=== PATIENT | male | born 1970 | race African-American/Black ===

== ENCOUNTER 2022-01-04 04:01 | Emergency (ER) | payer MEDICAID, OTHER ==
[~2022-01-04] VITALS: Ht 182.9 cm; Wt 113.0 kg
[2022-01-04] MEDS ORDERED: ONDANSETRON HCL 4MG/2ML INJ IV STA (05:23)
[2022-01-04] MEDS ORDERED: SODIUM CHLORIDE 0.9% 1,000 ML IV ONE (05:30)
[2022-01-04] MEDS ORDERED: FAMOTIDINE 20MG/2ML VIAL IV ONE (05:45)
[2022-01-04 05:59] LABS: HEMATOCRIT. 37.8 % (42.0-52.0); HEMOGLOBIN. 12.3 g/dL (14.0-18.0); MEAN CORPUSCULAR VOLUME 91.9 fL (80.0-94.0); MEAN PLATELET VOLUME 6.7 fl (7.4-10.4); PLATELET 352 x1000/uL (130-400); RED BLOOD CELL COUNT 4.11 mill/uL (4.7-6.1); RED CELL DISTRIBUTION WIDTH 16.2 % (11.6-14.6)
[2022-01-04 06:03] LABS: CHLORIDE 102 mEq/L (98-107)
[2022-01-04 06:12] LABS: ETHANOL BLOOD < 10 mg/dL
[2022-01-04 06:13] LABS: CLARITY URINE CLEAR (CLEAR); COLOR URINE YELLOW (YELLOW); KETONES URINE NEGATIVE (NEGATIVE); LEUKOCYTE ESTERASE URINE NEGATIVE (NEGATIVE); NITRITE URINE NEGATIVE (NEGATIVE); OCCULT BLOOD URINE NEGATIVE (NEGATIVE); PH URINE 7.5 (4.5-8.0); PROTEIN URINE NEGATIVE (NEGATIVE); SPECIFIC GRAVITY URINE 1.015 (1.005-1.030); UROBILINOGEN URINE 0.2 E.U./dL (0.2-1.0)
[2022-01-04 06:45] LABS: *AMPHETAMINES SCREEN URINE NEGATIVE (NEGATIVE); *BARBITURATES SCREEN URINE NEGATIVE (NEGATIVE); *BENZODIAZEPINES SCREEN URINE NEGATIVE (NEGATIVE); *COCAINE SCREEN URINE NEGATIVE (NEGATIVE); CANNABINOID URINE SCREEN NEGATIVE (NEGATIVE); METHADONE URINE SCREEN NEGATIVE (NEGATIVE); OPIATES URINE SCREEN NEGATIVE (NEGATIVE); PHENCYCLIDINE URINE SCREEN PRESUMTIVE POSITIVE (NEGATIVE)
[2022-01-04] MEDS ORDERED: IMOD MT (07:23)
[2022-01-04] MEDS ORDERED: ONDA4TAB11 PO (07:23)
[2022-01-04 08:00] VITALS: BP 161/101
[2022-01-04 10:29] LABS: PLATELET ESTIMATE NORMAL
== END 2022-01-04 08:35 | disposition home or self-care (01) ==
LOC: ER 04:01
DX: R19.7 Diarrhea, unspecified (principal); F16.10 Hallucinogen abuse, uncomplicated; I49.9 Cardiac arrhythmia, unspecified; E11.9 Type 2 diabetes mellitus without complications; Z86.59 Personal history of other mental and behavioral disorders
CPT/HCPCS: 36415; 71045; 80053; 80305; 80320; 81003; 82962; 83690; 85025; 93005; 96361; 96374; 96375; 99285; J2405; J3490; J7030; G0480

== ENCOUNTER 2022-01-06 12:40 | Emergency (ER) | payer MEDICAID, OTHER ==
[~2022-01-06] VITALS: Ht 177.8 cm; Wt 100.0 kg
[~2022-01-06 12:40] MED LIST: IMOD MT; ONDA4TAB11 PO
[2022-01-06 12:49] VITALS: BP 160/74
== END 2022-01-06 21:34 | disposition left against medical advice (07) ==
LOC: ER 13:34
DX: Z53.21 Procedure and treatment not carried out due to patient leaving prior to being seen by health care provider (principal)